=== PATIENT | female | born 1975 | race African-American/Black ===

== ENCOUNTER 2019-07-17 13:14 | Emergency (ER) | payer OTHER ==
[~2019-07-17] VITALS: Ht 165.1 cm; Wt 108.2 kg
[2019-07-17] MEDS ORDERED: PHENTERMINE (13:22)
[2019-07-17] MEDS ORDERED: CHOL100029 PO (13:22)
[2019-07-17] MEDS ORDERED: PHEN-239 PO (13:23)
[2019-07-17] MEDS ORDERED: FLUORESCEIN OPHTH 1 MG STRIP OD ONE (15:30)
[2019-07-17] MEDS ORDERED: TETRACAINE 0.5% OPHTH SOLN 4ML OD ONE (15:30)
[2019-07-17] MEDS ORDERED: FLUORESCEIN OPHTH 1 MG STRIP OS ONE (15:30)
[2019-07-17] MEDS ORDERED: KETOROLAC 0.5% OPHTH SOLN OD STA (15:50)
[2019-07-17] MEDS ORDERED: CIPROFLOXACIN 0.3% OPHTH SOLN 2.5ML OD STA (15:50)
[2019-07-17 16:13] VITALS: BP 122/72
== END 2019-07-17 16:15 | disposition home or self-care (01) ==
LOC: M ED 13:14
DX: S05.01XA Injury of conjunctiva and corneal abrasion without foreign body, right eye, initial encounter (principal); S05.02XA Injury of conjunctiva and corneal abrasion without foreign body, left eye, initial encounter; Y92.9 Unspecified place or not applicable; Y93.89 Activity, other specified; H57.13 Ocular pain, bilateral; Z79.899 Other long term (current) drug therapy